=== PATIENT | female | born 1990 ===

== ENCOUNTER 2017-10-23 12:09 | Day surgery (SDC) | payer BC ==
[~2017-10-23 12:09] MED LIST: Sodium Chloride 0.9% 10 ML Syringe FLUSH PRN
[2017-10-23] MEDS: Lidocaine 1%/Sod Bicarbonate in NS 8.4% 1 ML Syringe IDERM PRN (12:44)
[2017-10-23] MEDS: Lactated Ringers 1,000 ML IV SCH (12:45)
[2017-10-23] MEDS ORDERED: Ketamine 500 mg/10 ML MDV ONE (12:48)
[2017-10-23] MEDS ORDERED: fentaNYL 100 MCG/2 ML SDV ONE (12:48)
[2017-10-23] MEDS ORDERED: Propofol 200 MG/20 ML SDV ONE ×2 (12:48→12:49)
[2017-10-23] MEDS ORDERED: Midazolam 1 MG/ML 2 ML SDV ONE (12:48)
[2017-10-23] MEDS ORDERED: Lidocaine 1% 4 ML ONE (12:50)
--- NOTE | 2017-10-23 12:55 | PCM.PREANE ---
Preanesthetic Assessment - Anesthesia/Transfusion/Family Hx Anesthesia History: No Prior Anesthesia Family History of Anesthesia Reaction: No Transfusion History: No Prior Transfusion(s) - Review of Systems General: No Symptoms Pulmonary: No Symptoms Cardiovascular: No Symptoms Gastrointestinal: Other (Occasional heartburn. Mostly with certain foods. None today.) Neurological: No Symptoms Other: Reports: None - Physical Assessment NPO Status Date: 10/22/17 NPO Status Time: 20:00 O2 Sat by Pulse Oximetry: 99 Respiratory Rate: 16 Vital Signs: Last Vital Signs Temp 36.7 C 10/23/17 12:30 Pulse 84 10/23/17 12:30 Resp 16 10/23/17 12:30 BP 136/85 10/23/17 12:30 Pulse Ox 99 10/23/17 12:30 Height: 1.65 m Weight: 68.492 kg ASA Class: 1 Mental Status: Alert & Oriented x3 Airway Class: Mallampati = 1 Dentition: Reports: Normal Dentition Thyro-Mental Finger Breadths: 3 Mouth Opening Finger Breadths: 3 ROM/Head Extension: Full Lungs: Clear to Auscultation, Normal Respiratory Effort Cardiovascular: Regular Rate, Regular Rhythm - Allergies Allergies/Adverse Reactions: Allergies Allergy/AdvReac Type Severity Reaction Status Date / Time Sulfa (Sulfonamide Allergy Hives Verified 10/22/17 14:35 Antibiotics) - Acknowledgements Anesthesia Type Planned: MAC Pt an Appropriate Candidate for the Planned Anesthesia: Yes Alternatives and Risks of Anesthesia Discussed w Pt/Guardian: Yes Pt/Guardian Understands and Agrees with Anesthesia Plan: Yes PreAnesthesia Questionnaire HEENT History: Reports: None Cardiovascular History: Reports: None Respiratory History: Reports: None Gastrointestinal History: Reports: Other (See Below) Other Gastrointestinal History: bright red bleeding per rectum Genitourinary History: Reports: Other (See Below) Other Genitourinary History: dysuria, UTI THIRD LOADER History: Reports: Other (See Below) Other OB/BYN History: vaginal discharge, breast tenderness Musculoskeletal History: Reports: None Neurological History: Reports: None Psychiatric History: Reports: None Endocrine/Metabolic History: Reports: None Hematologic History: Reports: None Immunologic History: Reports: None Oncologic (Cancer) History: Reports: None Dermatologic History: Reports: None - Past Surgical History Head Surgeries/Procedures: Reports: None HEENT Surgical History: Reports: Eye Surgery Cardiovascular Surgical History: Reports: None Respiratory Surgical History: Reports: None GI Surgical History: Reports: None Female Surgical History: Reports: None Male Surgical History: Reports: None Endocrine Surgical History: Reports: None Neurological Surgical History: Reports: None Musculoskeletal Surgical History: Reports: None Oncologic Surgical History: Reports: None Dermatological Surgical History: Reports: None - SUBSTANCE USE Smoking Status *Q: Never Smoker Recreational Drug Use History: No - HOME MEDS Home Medications: Home Meds . [No Known Home Meds] 08/29/15 [History] - CURRENT (IN HOUSE) MEDS Current Meds: Current Medications Lactated Ringer's (Ringers, Lactated) 1,000 mls @ 125 mls/hr IV ASDIRECTED ABDULLAHI Lidocaine/Sodium Bicarbonate (Buffered Lidocaine 1% In Ns 8.4%) 0.25 ml IDERM ONETIME PRN PRN Reason: Prior to IV Start Sodium Chloride (Saline Flush) 10 ml FLUSH ASDIRECTED PRN PRN Reason: Keep Vein Open Discontinued Medications Fentanyl (Sublimaze) Confirm Administered Dose 100 mcg .ROUTE .STK-MED ONE Stop: 10/23/17 12:49 Lidocaine HCl (Xylocaine-Mpf 1%) Confirm Administered Dose 4 mls @ as directed .ROUTE .STK-MED ONE Stop: 10/23/17 12:51 Ketamine HCl (Ketalar) Confirm Administered Dose 500 mg .ROUTE .STK-MED ONE Stop: 10/23/17 12:49 Midazolam HCl (Versed 1 Mg/Ml) Confirm Administered Dose 2 mg .ROUTE .STK-MED ONE Stop: 10/23/17 12:49 Propofol (Diprivan 20 Ml) Confirm Administered Dose 400 mg .ROUTE .STK-MED ONE Stop: 10/23/17 12:49 Propofol (Diprivan 20 Ml) Confirm Administered Dose 200 mg .ROUTE .STK-MED ONE Stop: 10/23/17 12:50
--- NOTE | 2017-10-23 13:43 | PCM.OPNOTE ---
- General Post-Op/Procedure Note Date of Surgery/Procedure: 10/23/17 Operative Procedure(s): 1. Diagnostic anoscopy. 2. 2 column hemorrhoidal rubber band ligation Findings: Prominent left lateral and right posterior internal hemorrhoids Pre Op Diagnosis: Intermittent anorectal bleeding and symptomatic internal hemorrhoids Post-Op Diagnosis: Same Anesthesia Technique: MAC, Moderate Sedation Primary Surgeon: Artem Valverde Pathology: None EBL in mLs: 0 Complications: None Condition: Good Free Text/Narrative:: After adequate IV sedation and analgesia was obtained with monitoring the patient was placed in the prone jackknife position with her buttocks taped. The perianal region was prepped with Betadine and draped sterilely. Perianal inspection revealed no findings except for erythema most likely from topical applicants. Digital rectal examination revealed normal sphincter tone. Diagnostic anoscopy revealed no fissures but there were 2 prominent hemorrhoidal columns located in the left lateral and right posterior position. These hemorrhoidal tissues were not prolapsed or thrombosed. Rubber bands were placed in the left lateral column and in the posterolateral aspect of the right posterior column. There were no complications.
--- NOTE | 2017-10-23 13:57 | PCM48HPAN ---
Post Anesthesia Note - EVALUATION WITHIN 48HRS OF ANESTHETIC Vital Signs in Normal Range: Yes Patient Participated in Evaluation: Yes Respiratory Function Stable: Yes Airway Patent: Yes Cardiovascular Function Stable: Yes Hydration Status Stable: Yes Pain Control Satisfactory: Yes Nausea and Vomiting Control Satisfactory: Yes Mental Status Recovered: Yes Pulse Rate: 77 SaO2: 100 Resp Rate: 12 Temperature: 36.6 C Blood Pressure: 101/64
[2017-10-23 15:37] VITALS: BP 115/71
== END 2017-10-23 15:50 | disposition home or self-care (01) ==
LOC: JD.SDS 12:09
PROVIDERS: ATTEND Surgery
DX: K64.8 Other hemorrhoids (principal); K62.5 Hemorrhage of anus and rectum; Z88.2 Allergy status to sulfonamides
CPT/HCPCS: 46946; 81025; J2250; J3010; J7120; 00902; J2704